=== PATIENT | male | born 1950 | race Caucasian/White ===

== ENCOUNTER 2021-02-27 09:49 | Observation (INO) | payer MEDICARE ==
[~2021-02-27] VITALS: Ht 167.6 cm; Wt 59.3 kg
[~2021-02-27 09:49] MED LIST: LISI-167 PO; MULT-208 PO
[2021-02-27] MEDS ORDERED: ASPIRIN 81 MG TABLET CHEW ONE (10:13)
[2021-02-27] MEDS ORDERED: ASPIRIN 81 MG TABLET CHEW PO ONE (11:00)
[2021-02-27 11:07] LABS: BASOPHILS % (AUTO) 0 % (0-1); EOSINOPHILS % (AUTO) 1 % (1-7); LYMPHOCYTES % (AUTO) 14 % (22-44); MEAN CORPUSCULAR HEMOGLOBIN 32.1 pg (27.5-34.5); MEAN CORPUSCULAR HGB CONC 34.3 g/dL (33.2-36.2); MEAN PLATELET VOLUME 7.2 fL (7.4-10.4); MONOCYTES % (AUTO) 7 % (2-9); NEUTROPHILS % (AUTO) 78 % (42-75); PLATELET COUNT 271 x10^3/uL (130-400); RED BLOOD COUNT 4.53 x10^6/uL (4.38-5.82)
--- NOTE | 2021-02-27 11:07 | NUR ---
DELAY IN LABS D/T TUBE STATION ERROR. PT RESTING IN BED NSR BP STABLE. NO CHEST PAIN/COMPLAINTST AT THIS TIME. CALLBELL.
[2021-02-27 11:20] LABS: ALBUMIN 3.7 g/dL (3.4-5.0); ANION GAP 8 mmol/L (5-15); CALCIUM 9.1 mg/dL (8.5-10.1); CHLORIDE 108 mmol/L (98-107); CREATININE 1.32 mg/dL (0.7-1.3)
[2021-02-27 11:24] LABS: TROPONIN I < 0.015 ng/mL (0.000-0.045)
--- NOTE | 2021-02-27 13:00 | NUR ---
pt tbamd, ordered lunch per efren oropeza tele bed. nad. sr on monitor. no cp. as
--- NOTE | 2021-02-27 14:13 | NUR ---
PATIENT CARE REPORT TO CLIVE NAIR
[2021-02-27 14:47] VITALS: BP 169/95
[2021-02-27] MEDS ORDERED: MELA1TAB8 PO (15:32)
[2021-02-27 16:46] LABS: TROPONIN I < 0.015 ng/mL (0.000-0.045)
[2021-02-27] MEDS ORDERED: ACETAMINOPHEN 325 MG TABLET PO PRN (17:00)
[2021-02-27] MEDS ORDERED: ONDANSETRON 2MG/ML, 2ML IV PRN (17:00)
[2021-02-27] MEDS ORDERED: morphine SULFATE 10 MG/ML, 1ML IV PRN (17:00)
[2021-02-27] MEDS ORDERED: HYDROcodone/APAP 5/325 TABLET PO PRN (17:00)
[2021-02-27] MEDS ORDERED: BISACODYL 10 MG SUPP PR PRN (17:00)
[2021-02-27 17:26] LABS: CHOL/HDL RATIO 2.3
[2021-02-27] MEDS ORDERED: SODIUM CHLORIDE 0.9% 1,000 ML IV SCH (17:30)
[2021-02-27] MEDS: METOPROLOL TARTRATE 25 MG TAB PO SCH (18:14)
[2021-02-27] MEDS: HEPARIN 5,000 UNITS/ML, 1ML SQ SCH (18:15)
[2021-02-27 19:13] VITALS: BP 164/88
[2021-02-27] MEDS ORDERED: MELATONIN 5 MG TABLET PO PRN (20:00)
[2021-02-27] MEDS: LISINOPRIL 10 MG TABLET PO SCH (20:42)
[2021-02-27] MEDS: SODIUM CHLORIDE FLUSH 10ML SYR IVF SCH (20:42)
[2021-02-27 22:42] LABS: TROPONIN I < 0.015 ng/mL (0.000-0.045)
[2021-02-28] MEDS: HEPARIN 5,000 UNITS/ML, 1ML SQ SCH ×3 (01:41→17:00)
[2021-02-28 02:06] VITALS: BP 172/82
[2021-02-28 04:21] VITALS: BP 156/86
[2021-02-28 05:46] LABS: BASOPHILS % (AUTO) 0 % (0-1); EOSINOPHILS % (AUTO) 2 % (1-7); LYMPHOCYTES % (AUTO) 27 % (22-44); MEAN CORPUSCULAR HEMOGLOBIN 31.9 pg (27.5-34.5); MEAN CORPUSCULAR HGB CONC 34.1 g/dL (33.2-36.2); MEAN PLATELET VOLUME 7.1 fL (7.4-10.4); MONOCYTES % (AUTO) 10 % (2-9); NEUTROPHILS % (AUTO) 60 % (42-75); PLATELET COUNT 237 x10^3/uL (130-400); RED BLOOD COUNT 4.44 x10^6/uL (4.38-5.82); RED CELL DISTRIBUTION WIDTH 12.9 % (9.4-14.8)
[2021-02-28] MEDS ORDERED: PANTOPRAZOLE 40MG TABLET PO SCH (06:00)
[2021-02-28] MEDS ORDERED: ASPIRIN 325 MG TABLET EC PO SCH (06:00)
[2021-02-28 06:01] LABS: ALBUMIN 3.1 g/dL (3.4-5.0); ANION GAP 5 mmol/L (5-15); CALCIUM 8.7 mg/dL (8.5-10.1); CHLORIDE 114 mmol/L (98-107)
[2021-02-28 06:15] LABS: ALANINE AMINOTRANSFERASE 28 U/L (12-78); ALKALINE PHOSPHATASE 55 U/L (45-117); BILIRUBIN,TOTAL 1.5 mg/dL (0.2-1.0); CREATININE 1.09 mg/dL (0.7-1.3); TOTAL PROTEIN 6.9 g/dL (6.4-8.2)
[2021-02-28] MEDS ORDERED: REGADENOSON 0.4 MG/5 ML SYRINGE ONE (08:54)
[2021-02-28 11:04] VITALS: BP 186/78
[2021-02-28] MEDS: LISINOPRIL 10 MG TABLET PO SCH (11:20)
[2021-02-28] MEDS: METOPROLOL TARTRATE 25 MG TAB PO SCH (11:21)
[2021-02-28] MEDS: SODIUM CHLORIDE FLUSH 10ML SYR IVF SCH (11:23)
[2021-02-28 15:50] VITALS: BP 151/81
[2021-02-28] MEDS ORDERED: OMNIPAQUE 350 MG/ML, 75ML BOTTLE ONE (16:12)
[2021-02-28] MEDS ORDERED: METO25TA2 PO (16:28)
[2021-02-28 16:29] VITALS: BP 151/81
[2021-02-28 16:30] VITALS: BP 151/81
== END 2021-02-28 18:02 | disposition home or self-care (01) ==
LOC: ED 10:56 → 5SO 11:39 → INTOOBSV 11:39
PROVIDERS: ADMIT Hospitalist; ATTEND Internal Medicine
DX: R07.89 Other chest pain (principal); R61 Generalized hyperhidrosis; I20.0 Unstable angina; R94.31 Abnormal electrocardiogram [ECG] [EKG]; I10 Essential (primary) hypertension; F12.90 Cannabis use, unspecified, uncomplicated; Z87.891 Personal history of nicotine dependence; Z85.828 Personal history of other malignant neoplasm of skin; Z87.710 Personal history of (corrected) hypospadias; Z79.899 Other long term (current) drug therapy
CPT/HCPCS: 36415; 71045; 71275; 78452; 80048; 80053; 80061; 82040; 83735; 83880; 84443; 84484; 85025; 85379; 93005; 93017; 93306; 96360; 96361; 96372; 99285; A9502; G0378; J1644; J2785; J7030; Q9967